=== PATIENT | female | born 1960 | race Caucasian/White ===

== ENCOUNTER 2021-06-15 16:45 | Emergency (ER) | payer OTHER ==
[~2021-06-15] VITALS: Ht 162.6 cm; Wt 77.7 kg
[2021-06-15 18:11] LABS: BASO % 0.7 % (0.0-1.0); EOS # 0.1 10^3/uL (0.0-0.5); EOS % 2.3 % (0.0-3.0); HEMATOCRIT 42.9 % (36.0-47.0); HEMOGLOBIN 14.4 g/dl (12.0-15.5); LYMPH # 1.9 10^3/uL (1.5-5.0); MEAN CORPUSCULAR HEMOGLOBIN 31.4 pg (27.0-33.0); MEAN CORPUSCULAR HGB CONC 33.6 g/dl (32.0-36.5); MEAN CORPUSCULAR VOLUME 93.5 fl (80.0-96.0); MONO # 0.4 10^3/uL (0.0-0.8); NEUTROPHILS # 3.5 10^3/uL (1.5-8.5); NEUTROPHILS % 57.7 % (36.0-66.0); PLATELET COUNT, AUTOMATED 179 10^3/uL (150-450); RED BLOOD COUNT 4.59 10^6/uL (4.00-5.40)
[2021-06-15 18:39] LABS: ALBUMIN 3.9 GM/DL (3.2-5.2); ALT/SGPT 21 U/L (12-78); BILIRUBIN,DIRECT 0.2 MG/DL (0.0-0.2); BILIRUBIN,TOTAL 0.6 MG/DL (0.2-1.0); BLOOD UREA NITROGEN 14 MG/DL (7-18); CARBON DIOXIDE LEVEL 28 MEQ/L (21-32); CHLORIDE LEVEL 111 MEQ/L (98-107); CREATININE FOR GFR 0.74 MG/DL (0.55-1.30); GLOMERULAR FILTRATION RATE > 60.0 (>45); GLUCOSE, FASTING 84 MG/DL (70-100); LIPASE 128 U/L (73-393); POTASSIUM SERUM 4.2 MEQ/L (3.5-5.1); SODIUM LEVEL 143 MEQ/L (136-145); TOTAL PROTEIN 6.7 GM/DL (6.4-8.2)
[2021-06-15 23:15] LABS: CK-MB VALUE MASS < 1.0 NG/ML (<3.6); CPK CREATINE PHOSPHOKINASE 65 U/L (26-192); MB/CK RELATIVE INDEX 1.54 (< OR =4); TROPONIN I < 0.02 NG/ML (< 0.10)
--- NOTE | 2021-06-15 23:50 | REPVR ---
PROCEDURE INFORMATION: Exam: US Abdomen, Limited; Right Upper Quadrant Exam date and time: 06/15/2021 11:16 PM Age: 60 years old Clinical indication: Abdominal pain; Additional info: Ruq pain/ttp TECHNIQUE: Imaging protocol: US abdomen. Real time ultrasound with image documentation. Limited exam focused on the right upper quadrant. COMPARISON: No relevant prior studies available. FINDINGS: Liver: Unremarkable. Gallbladder: No gallstones. No gallbladder wall thickening or pericholecystic fluid. 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 Common bile duct: No stones. No ductal dilatation. Pancreas: Unremarkable as visualized. Right kidney: No mass. No definite stones. No hydronephrosis. IMPRESSION: No acute sonographic findings. Electronically signed by: Dane Bey On 06/15/2021 23:50:15 PM
[2021-06-15] MEDS ORDERED: GI COCKTAIL 50ML BTL(HYOSCYAMINE/MAALOX/LIDOCAINE VISCOUS)(1:3:1) PO ONE (23:55)
[2021-06-15] MEDS ORDERED: ISOVUE-370 76% 100ML VIAL As Ordered ONE (23:59)
--- NOTE | 2021-06-16 00:35 | REPVR ---
PROCEDURE INFORMATION: Exam: CT Abdomen And Pelvis With Contrast Exam date and time: 06/15/2021 11:55 PM Age: 60 years old Clinical indication: Abdominal pain; Epigastric; Additional info: Epigastric and ruq pain/ttp TECHNIQUE: Imaging protocol: Computed tomography of the abdomen and pelvis with contrast. Axial, coronal and sagittal reformatted images were created and reviewed. Radiation optimization: All CT scans at this facility use at least one of these dose optimization techniques: automated exposure control; mA and/or kV adjustment per patient size (includes targeted exams where dose is matched to clinical indication); or iterative reconstruction. Contrast material: ISO; Contrast volume: 100 ml; Contrast route: INTRAVENOUS (IV); COMPARISON: GALLBLADDER US 06/15/2021 11:07 PM FINDINGS: Lungs: Minimal left greater than right linear atelectasis and/or scarring. Liver: Indeterminate 2.4 x 2.4 cm low-density lesion in the right hepatic lobe. Gallbladder and bile ducts: No radiodense gallstones. No biliary ductal dilatation. Pancreas: Unremarkable. Spleen: Unremarkable. Adrenal glands: Normal. No mass. Kidneys and ureters: No mass. No radiodense calculi. No hydronephrosis. Stomach and bowel: No bowel wall thickening. No obstruction. No pneumatosis. Appendix: Appendix not identified with certainty but no right lower quadrant inflammatory change to suggest acute appendicitis. Intraperitoneal space: No free fluid. No organized fluid collection. No free air. Vasculature: Mild atherosclerotic disease. No aneurysm or dissection. Lymph nodes: No pathologically enlarged lymph nodes. Urinary bladder: Unremarkable as visualized. Reproductive: 4.7 x 3.2 cm left adnexal cystic lesion. Bones/joints: No acute osseous abnormality. Osteopenia. Mild degenerative changes. Soft tissues: Unremarkable. IMPRESSION: 1. 4.7 x 3.2 cm left adnexal cystic lesion. If clinically indicated, pelvic ultrasound may be obtained for further evaluation. 2. Indeterminate 2.4 x 2.4 cm low-density lesion in the right hepatic lobe. If clinically indicated, multiphasic CT scan or MRI may be obtained. 3. Additional findings, as above. Electronically signed by: Dane Bey On 06/16/2021 00:34:48 AM
[2021-06-16] MEDS ORDERED: OMEP40CA4 PO (01:05)
[2021-06-16 01:35] VITALS: BP 153/66
--- NOTE | 2021-06-17 06:26 | ECGEPIP ---
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
== END 2021-06-16 01:37 | disposition home or self-care (01) ==
LOC: M ED 16:45
DX: K29.70 Gastritis, unspecified, without bleeding (principal); K21.9 Gastro-esophageal reflux disease without esophagitis; R00.1 Bradycardia, unspecified; K76.9 Liver disease, unspecified; N83.202 Unspecified ovarian cyst, left side; E78.5 Hyperlipidemia, unspecified; Z79.899 Other long term (current) drug therapy
CPT/HCPCS: 36415; 74177; 76705; 80048; 80076; 82550; 82553; 83690; 84484; 85025; 93005; 99284; Q9967